=== PATIENT | female | born 1960 | race Caucasian/White ===

== ENCOUNTER → 2017-02-17 | Outpatient (CLI) | payer OTHER ==
[2013-07-19 10:20] VITALS: BP 109/77
--- NOTE | 2017-02-17 15:56 | RAD ---
HISTORY: Persistent cough Study: Chest two-view Comparison: None Findings: The heart is within normal limits in size. The lester are normal. The lungs are well inflated. There i s subtle peribronchial infiltrate in the right lower lobe suggestive of pneumonia. The remainder of the lung barba are clear. No pleural effusions are identified. The bony thorax is unremarkable. IMPRESSION: Peribronchial right lower lobe infiltrate suggestive of bronchopneumonia Reported By:
== END ==
LOC: RAD 15:31
PROVIDERS: ATTEND Internal Medicine
DX: R05 Cough (principal)
CPT/HCPCS: 71020

== ENCOUNTER → 2017-09-05 | Outpatient (CLI) | payer OTHER ==
[2013-07-19 10:20] VITALS: BP 109/77
--- NOTE | 2017-09-05 14:57 | VAS ---
HISTORY: Bilateral lower extremity pain Study: Bilateral lower extremity venous Doppler Comparison: None Technique: Multiple grayscale as well as spectral and color Doppler images of the bilateral lower ext remities were obtained. Findings: Sonographic evaluation was performed bilaterally from the level of the common femoral through the tib ial veins. There is normal compressibility, phasicity, and augmentation. IMPRESSION: No evidence for DVT Reported By:
== END ==
LOC: RAD 13:51
PROVIDERS: ATTEND Internal Medicine
DX: M79.605 Pain in left leg (principal); M79.604 Pain in right leg
CPT/HCPCS: 93970